=== PATIENT | female | born 1980 | race Caucasian/White ===

== ENCOUNTER 2020-08-09 16:32 | Emergency (ER) | payer OTHER ==
[~2020-08-09] VITALS: Ht 167.6 cm; Wt 62.6 kg
--- OUTSIDE RECORDS SUMMARY | ~2020-08-09 | XMS | Encounter Summary ---
Demographics + + + | Address | [address] | | | [place] [address] | + + + | Home Phone | | + + + | Preferred Language | Unknown | + + + | Marital Status | | + + + | Caodaism Affiliation | 1028 | + + + | Race | White | + + + | Ethnic Group | Not or | + + + Author + + + | Author | [facility] | | | and [place] | + + + | Organization | [facility] | | | and [place] | + + + | Address | Unknown | + + + | Phone | Unavailable | + + + Support + + +---------+ + | Name | Relationship | Address | Phone | + + +---------+ + | Kostas Birch | ECON | Unknown | | + + +---------+ + Care Team Providers + +------+ + | Care Paper Rewinder Operator Name | Role | Phone | + +------+ + | Elif Luong | PCP | | | PA | | | + +------+ + Encounter Details +--------+ + + + + | Date | Type | Department | Care Team | Description | +--------+ + + + + | 01/16/ | Abstract | [facility] | Provider, | | | 2019 | | MD Marvin Wray | | | | | [place] | [address] | | | | | [address] | [place] [address] | | | | | [phone] | | | +--------+ + + + + Social History + +-------+ +--------+------+ | Tobacco Use | Types | Packs/Day | Years | Date | | | | | Used | | + +-------+ +--------+------+ | Never Assessed | | | | | + +-------+ +--------+------+ + + + | Sex Assigned at | Date Recorded | | | | + + + | Not on file | | + + + documented as of this encounter Plan of Treatment Not on filedocumented as of this encounter Visit Diagnoses Not on filedocumented in this encounter"
--- OUTSIDE RECORDS SUMMARY | ~2020-08-09 | XMS | Encounter Summary ---
Demographics + + + | Address | [address] | | | [place] [address] | + + + | Home Phone | | + + + | Preferred Language | Unknown | + + + | Marital Status | | + + + | Yazidi Affiliation | 1028 | + + + | Race | White | + + + | Ethnic Group | Not or | + + + Author + + + | Author | [facility] | | | and [place] | + + + | Organization | [facility] | | | and [...] Team Providers + +------+ + | Care Cop Examiner Name | Role | Phone | + +------+ + PCP | Unavailable | + +------+ + Encounter Details +--------+ + + + + | Date | Type | Department | Care Team | Description | +--------+ + + + + | 02/05/ | Hospital | [facility] | | | | 1992 | Encounter | MED CTR XRAY [address] | | | | | | [address] | | | | | | [place] [address] | | | | | | [phone] | | | +--------+ + + + [...]
--- OUTSIDE RECORDS SUMMARY | ~2020-08-09 | XMS | Encounter Summary ---
Demographics + + + | Address | [address] | | | [place] [address] | + + + | Home Phone | | + + + | Preferred Language | Unknown | + + + | Marital Status | | + + + | Spiritism Affiliation | 1028 | + + + | Race | White | + + + | Ethnic Group | Not or | + + + Author + + + | Author | [facility] | | | and [place] | + + + | Organization | [facility] | | | and [place] | + [...] Team Providers + +------+ + | Care Assistant Account Manager Name | Role | Phone | + +------+ + PCP | Unavailable | + +------+ + Encounter Details +--------+ + + + + | Date | Type | Department | Care Team | Description | +--------+ + + + + | 09/20/ | [facility] | [facility] | Wagner Bridges, | | | 1993 | Encounter | MED CTR MP INTRA OP | MD [address] [facility] | | | | | [address] | [place] | | | | | [place] | [address] | | | | | [address] | | | | | | [phone] | | | +--------+ + + + [...]
--- OUTSIDE RECORDS SUMMARY | ~2020-08-09 | XMS | Encounter Summary ---
Demographics + + + | Address | [address] | | | [place] [address] | + + + | Home Phone | | + + + | Preferred Language | Unknown | + + + | Marital Status | | + + + | Shinto Affiliation | 1028 | + + + | Race | White | + + + | Ethnic Group | Not or | + + + Author + + + | Author | [facility] | | | and [place] | + + + | Organization | [facility] | | | and [place] | + + + | Address | Unknown | + + + | Phone | Unavailable | + + + Support + + +---------+ + | Name | Relationship | Address | Phone | + + +---------+ + | Kostas Gauthier | ECON | Unknown | | + + +---------+ + Care Team Providers + +------+ + | Care Material Movers Name | Role | Phone | + +------+ + | Elif Luong | PCP | | | PA | | | + +------+ + Reason for Visit + + + | Reason | Comments | + + + | New Patient | microscopic hematuria | + + + | Urinary Tract | | | Infection | | + + + Evaluate & Treat (Routine) +--------+--------+ + + + + | Status | Reason | Specialty | Diagnoses / | Referred By | Referred To | | | | | Procedures | Contact | Contact | +--------+--------+ + + + + | Closed | | Urology | Diagnoses | Mica, | Toya | | | | | UTI | Elif | Marlo Quiles, | | | | | (urinary | MARGARITA Jaramillo | [address] | | | | | tract | [address] | [address] | | | | | infection) | [address] | [place], | | | | | NEW/ UTI/ | [place], | [place] [address] | | | | | [place] | [place] | Phone: | | | | | Procedures | [address] | [phone] | | | | | NEW PATIENT | Phone: | Fax: | | | | | | [phone] | [phone] | | | | | | Fax: | | | | | | | [phone] | | +--------+--------+ + + + + Encounter Details +--------+---------+ + + + | Date | Type | Department | Care Team | Description | +--------+---------+ + + + | 01/19/ | Office | [facility] | Marlo Pittman | Hematuria, | | 2019 | Visit | [address] | [address] | unspecified type | | | | [place] | [address] | (Primary Dx); | | | | [address] | [place], [place] | Abnormal urine | | | | [phone] | [address] | finding; History of | | | | | | kidney stones | | | | | (Fax) | | +--------+---------+ + + + Social History + +-------+ +--------+------+ | Tobacco Use | Types | Packs/Day | Years | Date | | | | | Used | | + +-------+ +--------+------+ | Never Smoker | | | | | + +-------+ +--------+------+ + +---+---+---+ | Smokeless Tobacco: | | | | | Never Used | | | | + +---+---+---+ + + + | Sex Assigned at | Date Recorded | | | | + + + | Not on file | | + + + documented as of this encounter Last Filed Vital Signs + + + + + | Vital Sign | Reading | Time Taken | Comments | + + + + + | Blood Pressure | 118/78 | 01/20/2020 1:38 PM | | | | | PDT | | + + + + + | Pulse | 84 | 01/20/2020 1:38 PM | | | | | PDT | | + + + + + | Temperature | - | - | | + + + + + | Respiratory Rate | 18 | 01/20/2020 1:38 PM | | | | | PDT | | + + + + + | Oxygen Saturation | - | - | | + + + + + | Inhaled Oxygen | - | - | | | Concentration | | | | + + + + + | Weight | 63.5 kg (139 lb 15.9 | 01/20/2020 1:38 PM | | | | oz) | PDT | | + + + + + | Height | 167.6 cm (5' 6") | 01/20/2020 1:38 PM | | | | | PDT | | + + + + + | Body Mass Index | 22.6 | 01/20/2020 1:38 PM | | | | | PDT | | + + + + + documented in this encounter Progress Marlo Bravo MD - 01/20/2020 1:30 PM PDTFormatting of this note might be differ ent from the original. Chief Complaint Patient presents with New Patient microscopic hematuria Urinary Tract Infection HPI Katerin Gauthier is a 39 y.o. female patient of MARGARITA Arceo here today for a ev aluation for urinary tract infection and microhematuria. Microscopic hematuria, UTI's Bouts of right upper quadrant pain No dysuria, gross hematuria, no frequency, no urgency, Has had worsening back and flank pain associated with malaise, intermittent, not very bothe rsome Has history of passing stones, Complains of suprapubic tenderness, mild urgency Had ultrasound of the kidney 4 years ago, does not think stones were found Assessment Katerin was seen today for new patient and urinary tract infection. Diagnoses and all orders for this visit: Hematuria, unspecified type - CT Urogram w wo Contrast; Future - Medical Cytology; Future Abnormal urine finding - POCT Urinalysis - Urinalysis, Microscopic Only, with Culture if Indicated History of kidney stones - Parathyroid Hormone, Intact; Future - Uric Acid; Future Plan PVR 123mL-normal PTH, uric acid 24 hour urine Cysto, CT urogram and cytology Past Medical History Past Medical History: Diagnosis Date Allergic rhinitis pollen Arthralgia pelvis/ hip /femur right Kidney stone Lichenoid keratosis benign Pyelonephritis, acute Past Surgical History Past Surgical History: Procedure Laterality Date GALLBLADDER SURGERY TONSILLECTOMY AND ADENOIDECTOMY Family History: History reviewed. No pertinent family history. Social History: Social History Socioeconomic History Marital status: Spouse name: Not on file Number of children: Not on file Years of education: Not on file Highest education level: Not on file Tobacco Use Smoking status: Never Smoker Smokeless tobacco: Never Used Allergies Allergen Reactions Doxycycline Headache Doxycycline llyclate powder Morphine Rash Sulfamethoxazole-Trimethoprim Hives and Rash Medications: Current Outpatient Medications: busPIRone (BUSPAR) 7.5 MG tablet, Take 7.5 mg by mouth 2 times daily., Disp: , Rfl: cetirizine (ZYRTEC) 10 mg tablet, Take 10 mg by mouth Daily., Disp: , Rfl: levonorgestrel-ethinyl estradiol (JOLESSA) 0.15-0.03 MG per tablet, Take 1 tablet by m outh Daily., Disp: , Rfl: pseudoePHEDrine (SUDAFED) 120 mg 12 hr tablet, Take 120 mg by mouth every 12 hours., D isp: , Rfl: ROS Objective BP 118/78 | Pulse 84 | Resp 18 | Ht 1.676 m (5' 6") | Wt 63.5 kg (139 lb 15.9 oz) | BM I 22.60 kg/m General Appearance: Alert, cooperative, no distress, appears stated age Head: Normocephalic, without obvious abnormality, atraumatic Eyes: conjunctiva/corneas clear, EOM's intact Throat: Lips, mucosa, and tongue normal; no gross deformities, mmm Neck: Supple, symmetrical, no adenopathy Lungs: Regular, unlabored breathing MS No CVA tenderness, no spinal tenderness, no scoliosis present Abdomen: Soft, non-tender, no masses Extremities: Extremities normal, atraumatic, no cyanosis, clubbing, or edema Pulses: Radial pulses 2+ and symmetric Skin: Warm and dry Lymph nodes: Cervical and supraclavicular nodes normal Neurologic: Gait normal, CN 2-12 grossly intact; Strength and sensation grossly normal in b ilateral upper and lower extremities Data: REVIEW OF SYSTEMS: [] Marked All Negative Constitutional Symptoms: [] Fever [] Chills [] Headache [] Change in appetite [] Change in weight [x] Change in energy [] Other: Neurological: [] Tremors [] Dizzy Spells [] Numbness/Tingling [] Seizures [] Other: Endocrine: [] Excessive thirst [] Too hot [] Too cold [x] Tired/Sluggish Gastrointestinal: [x] Abdominal pain [x] Nausea/Vomiting [x] Indigestion/heartburn [] Change in s tool size [] Change in stool shape [] Change in stool color [] Pain with swallow ing [] Other: Cardiovascular: [] Chest Pain [] Rapid heart rate [] High blood pressure [] Other: Integumentary: [] Skin rash [] Boils [] Persistent itch [] Other: Musculoskeletal: [] Neck Pain [] Joint swelling/pain [x] Back pain [] Bone pain [] Other: Respiratory: [] Wheezing [] Frequent cough [] Shortness of breath [] Other: Hematologic/Lymphatic: [] Swollen glands [] Blood clotting issues [] Prior blood transfusions []Other: Psychologic: Are you generally satisfied with your life? yes Do you feel severely depressed? no Have you considered suicide? no Habits: Do you smoke? no Results for orders placed or performed in visit on 01/20/20 Urinalysis, Microscopic Only, with Culture if Indicated Result Value Ref Range WBC UA 0-2 0 - 2 /HPF RBC UA 0-2 0 - 2 /HPF SQUAMOUS EPITHELIAL UA 10-15 (A) 0 - 2 /LPF BACTERIA UA Negative Negative /HPF MUCUS UA Present (A) Negative /LPF URINE COMMENT Urine Culture Not Indicated POCT Urinalysis Result Value Ref Range Color, UA, POC Yellow Yellow, Light Yellow Clarity, UA, POC Clear Glucose, UA, POC Negative Negative Bilirubin, UA, POC Negative Negative Ketones, UA, POC Negative Negative, 100 mg/dL Specific [place], UA, POC 1.015 1.001 - 1.030 Blood, UA, POC Trace Lysed (A) Negative pH, UA, POC 6.0 5.0, 6.0, 7.0, 8.0, 5.5, 6.5, 7.5 Protein, UA, POC Negative Negative Urobilinogen, UA, POC 0.2 0.2, Negative, Normal, < 0.2 mg/dL, 1 mg/dL, < 0.2 E.U./dl, 1.0 E.U./dL, 0.2 mg/dL Nitrite, UA, POC Negative Negative Leukocyte Esterase, UA, POC Negative Negative Remark No results found for: MARGARITA Vera's notes were reviewed in clinic today. Return for next available cysto.. This document was generated in part using voice recognition software. Frequent wrong word or sound-alike substitutions may have occurred due to the inherent limitations of the voice recognition software. Although I have attempted to edit the content, I have not thoroughly proofread this note, and cloth picker errors are very likely to occur. CC: MARGARITA Arceo documented in this encounter Plan of Treatment Not on filedocumented as of this encounter Procedures + +--------+ + + + | Procedure Name | Priori | Date/Time | Associated Diagnosis | Comments | | | ty | | | | + +--------+ + + + | MEDICAL CYTOLOGY | Routin | 02/11/2020 | | Results for this | | | e | 12:00 AM | | procedure are in the | | | | PDT | | results section. | + +--------+ + + + | LABS - EXTERNAL SCAN | | 01/30/2020 | | Results for this | | | | 12:00 AM | | procedure are in the | | | | PDT | | results section. | + +--------+ + + + | POCT URINALYSIS, | Routin | 01/20/2020 | Abnormal urine | Results for this | | AUTO WITH CONF | e | 1:36 PM | finding | procedure are in the | | | | PDT | | results section. | + +--------+ + + + | URINALYSIS, | Routin | 01/20/2020 | Abnormal urine | Results for this | | MICROSCOPIC ONLY, | e | 1:35 PM | finding | procedure are in the | | WITH CULTURE IF | | PDT | | results section. | | INDICATED | | | | | + +--------+ + + + | IMAGING REPORT - | | 01/20/2020 | | Results for this | | EXTERNAL SCAN | | 12:00 AM | | procedure are in the | | | | PDT | | results section. | + +--------+ + + + documented in this encounter Results Medical Cytology (02/11/2020 12:00 AM PDT) + + | Specimen | + + | | + + + + + | Narrative | Performed At | + + + | ORDERING PHYSICIAN: Marlo Pittman MD PATIENT NAME: | [facility] | | KATER[place] GAUTHIER GENDER: F : 1980 | [place] | | SPECIMEN(S): A URINE, CLEAN CATCH GROSS DESCRIPTION: 80 ML OF | | | CLEAR, YELLOW FLUID IN CYTOLYT CLINICAL HISTORY: NO CLINICAL | | | DATA PROVIDED LABORATORY PREPARATIONS: 1 [facility] | | | INTERPRETATION: Urine, Voided: Negative for High Grade Urothelial | | | Carcinoma ([facility]). Blood present. DESCRIPTION: The preparation | | | is adequately cellular. Intact red blood cells are present and | | | indicate hematuria. Cytologic features of high grade urothelial | | | carcinoma are absent. SPECIMEN ADEQUACY: Satisfactory for | | | Evaluation PERFORMING LABORATORY: Technical preparation was | | | performed by [facility] [id number] | | | [place] [address] and [facility] [address] | | | [place] [address]. Professional interpretation was performed | | | by [facility] - [facility] - [address] | | | [place] [address] (Blood Donor Unit Assistant: Kang Cornelius, | | | ; IA#:[id number]).8 Diagnostician: Racquel DRISCOLL | | | ([facility]) Kitchen Food Assembler Diagnostician: Anthony Nuñez MD | | | Pathologist Electronically Signed 02/13/2020 | | + + + + +---------+ + + | Performing | Address | City/State/Zipcode | Phone Number | | Organization | | | | + +---------+ + + | [facility] | | | | | [place] | | | | + +---------+ + + LABS - EXTERNAL SCAN (01/30/2020 12:00 AM PDT) + + + | Narrative | Performed At | + + + | Ordered by an | | | unspecified provider. | | + + + Uric Acid (01/20/2020 2:34 PM PDT) + +-------+ + + + | Component | Value | Ref Range | Performed | Pathologist | | | | | At | Signature | + +-------+ + + + | Uric Acid | 4.0 | 3.1 - 7.8 mg/dL | [facility] | | | | | | [facility] | | | | | | MEDICAL | | | | | | CENTER - | | | | | | LABORATORY | | + +-------+ + + + + + | Specimen | + + | Blood | + + + + + + + | Performing | Address | City/State/Zipcode | Phone Number | | Organization | | | | + + + + + | [facility] | [address] | [place] | [phone] | | [facility] | | [address] | | | - LABORATORY | | | | + + + + + Parathyroid Hormone, Intact (01/20/2020 2:34 PM PDT) + +-------+ + + + | Component | Value | Ref Range | Performed | Pathologist | | | | | At | Signature | + +-------+ + + + | PTH Intact | 48 | 19 - 88 pg/mL | [facility] | | | | | | [facility] | | | | | | MEDICAL | | | | | | CENTER - | | | | | | LABORATORY | | + +-------+ + + + + + | Specimen | + + | Blood | + + + + + + + | Performing | Address | City/State/Zipcode | Phone Number | | Organization | | | | + + + + + | [facility] | [address] | [place] | [phone] | | [facility] | | [address] | | | - LABORATORY | | | | + + + + + POCT Urinalysis (01/20/2020 1:36 PM PDT) + + + + + + | Component | Value | Ref Range | Performed | Pathologist | | | | | At | Signature | + + + + + + | Color, UA, | Yellow | Yellow, Light | | | | POC | | Yellow | | | + + + + + + | Clarity, | Clear | | | | | UA, POC | | | | | + + + + + + | Glucose, | Negative | Negative | | | | UA, POC | | | | | + + + + + + | Bilirubin, | Negative | Negative | | | | UA, POC | | | | | + + + + + + | Ketones, | Negative | Negative, 100 | | | | UA, POC | | mg/dL | | | + + + + + + | Specific | 1.015 | 1.001 - 1.030 | | | | [place], | | | | | | UA, POC | | | | | + + + + + + | Blood, UA, | Trace Lysed (A) | Negative | | | | POC | | | | | + + + + + + | pH, UA, POC | 6.0 | 5.0, 6.0, 7.0, | | | | | | 8.0, 5.5, 6.5, | | | | | | 7.5 | | | + + + + + + | Protein, | Negative | Negative | | | | UA, POC | | | | | + + + + + + | Urobilinoge | 0.2 | 0.2, Negative, | | | | n, UA, POC | | Normal, < 0.2 | | | | | | mg/dL, 1 mg/dL, | | | | | | < 0.2 E.U./dl, | | | | | | 1.0 E.U./dL, | | | | | | 0.2 mg/dL | | | + + + + + + | Nitrite, | Negative | Negative | | | | UA, POC | | | | | + + + + + + | Leukocyte | Negative | Negative | | | | Esterase, | | | | | | UA, POC | | | | | + + + + + + | Remark | | | | | + + + + + + + + | Specimen | + + | Urine | + + Urinalysis, Microscopic Only, with Culture if Indicated (01/20/2020 1:35 PM PDT) + + + + + + | Component | Value | Ref Range | Performed | Pathologist | | | | | At | Signature | + + + + + + | White Blood | 0-2 | 0 - 2 /HPF | [facility] | | | Cells, | | | [facility] | | | Urine | | | MEDICAL | | | | | | CENTER - | | | | | | LABORATORY | | + + + + + + | Red Blood | 0-2 | 0 - 2 /HPF | [facility] | | | Cells, | | | [facility] | | | Urine | | | MEDICAL | | | | | | CENTER - | | | | | | LABORATORY | | + + + + + + | Squamous | 10-15 (A) | 0 - 2 /LPF | [facility] | | | Epithelial | | | [facility] | | | Cells, | | | MEDICAL | | | Urine | | | CENTER - | | | | | | LABORATORY | | + + + + + + | Bacteria, | Negative | Negative /HPF | [facility] | | | Urine | | | [facility] | | | | | | MEDICAL | | | | | | CENTER - | | | | | | LABORATORY | | + + + + + + | Mucus, | Present (A) | Negative /LPF | [facility] | | | Urine | | | [facility] | | | | | | MEDICAL | | | | | | CENTER - | | | | | | LABORATORY | | + + + + + + | Urine | Urine Culture Not | | [facility] | | | Comment | Indicated | | [facility] | | | | | | MEDICAL | | | | | | CENTER - | | | | | | LABORATORY | | + + + + + + + + | Specimen | + + | Urine - Urine | | specimen obtained by | | clean catch | | procedure (specimen) | + + + + + + + | Performing | Address | City/State/Zipcode | Phone Number | | Organization | | | | + + + + + | [facility] | [address] | [place], [place] | [phone] | | [facility] | | [address] | | | - LABORATORY | | | | + + + + + IMAGING REPORT - EXTERNAL SCAN (01/20/2020 12:00 AM PDT) + + + | Narrative | Performed At | + + + | Ordered by an | | | unspecified provider. | | + + + documented in this encounter Visit Diagnoses + + | Diagnosis | + + | Hematuria, unspecified type - Primary | + + | Abnormal urine finding Other nonspecific finding on examination of urine | + + | History of kidney stones Personal history of urinary calculi | + + documented in this encounter
--- OUTSIDE RECORDS SUMMARY | ~2020-08-09 | XMS | Encounter Summary ---
Demographics + + + | Address | [address] | | | [place] [address] | + + + | Home Phone | | + + + | Preferred Language | Unknown | + + + | Marital Status | | + + + | Adventist Affiliation | 1028 | + + + | Race | White | + + + | Ethnic Group | Not or | + + + Author + + + | Author | [facility] | | | and [place] | + + + | Organization | [facility] | | | [...] Team Providers + +------+ + | Care Digital Sales Director Name | Role | Phone | + +------+ + PCP | Unavailable | + +------+ + Encounter Details +--------+ + + + + | Date | Type | Department | Care Team | Description | +--------+ + + + + | 10/12/ | Hospital | [facility] | | | | 2000 | Encounter | MED CTR XRAY [address] | | | | | | [place] | | | | | | [place] [address] | | | | | | [phone] | | | +--------+ + + + [...]
--- OUTSIDE RECORDS SUMMARY | ~2020-08-09 | XMS | Clinical Summary ---
Demographics + + + | Address | [address] | | | [place] [address] | + + + | Home Phone | | + + + | Preferred Language | Unknown | + + + | Marital Status | | + + + | Church Affiliation | 1028 | + + + | Race | White | + + + | Ethnic Group | Not or | + + + Author + + + | Author | [facility] | | | and Krisana | + + + | Organization | [facility] | | | [...] Team Providers + +------+ + | Care Pulp Grinder Name | Role | Phone | + +------+ + | Elif Luong | PCP | | | PA | | | + +------+ + Allergies + + + + + + | Active Allergy | Reactions | Severity | Noted | Comments | | | | | Date | | + + + + + + | Doxycycline | Headache | | 01/17/20 | Doxycycline | | | | | 20 | llyclate powder | + + + + + + | Morphine | Rash | Low | 01/20/20 | | | | | | 20 | | + + + + + + | Sulfamethoxazole-Tri | Hives, Rash | Low | 01/17/20 | | | methoprim | | | 20 | | + + + + + + Medications + + + +---------+------+------+-------+ | Medication | Sig | Dispensed | Refills | Star | End | Statu | | | | | | t | Date | s | | | | | | Date | | | + + + +---------+------+------+-------+ | busPIRone (BUSPAR) | Take 7.5 mg by mouth | | 0 | | | Activ | | 7.5 MG tablet | 2 times daily. | | | | | e | + + + +---------+------+------+-------+ | | Take 1 tablet by | | 0 | | | Activ | | levonorgestrel-ethin | mouth Daily. | | | | | e | | yl estradiol | | | | | | | | (JOLESSA) 0.15-0.03 | | | | | | | | MG per tablet | | | | | | | + + + +---------+------+------+-------+ | pseudoePHEDrine | Take 120 mg by mouth | | 0 | | | Activ | | (SUDAFED) 120 mg 12 | every 12 hours. | | | | | e | | hr tablet | | | | | | | + + + +---------+------+------+-------+ | cetirizine | Take 10 mg by mouth | | 0 | | | Activ | | (ZYRTEC) 10 mg | Daily. | | | | | e | | tablet | | | | | | | + + + +---------+------+------+-------+ Active Problems Not on file Social History + +-------+ +--------+------+ | Tobacco [...] on file | | + + + Last Filed Vital Signs + + + + + | Vital Sign | Reading | Time Taken | Comments | + + + + + | Blood Pressure | 116/72 | 02/11/2020 2:49 PM | | | | | PDT | | + + + + + | Pulse | 84 | 02/11/2020 2:49 PM | | | | | PDT | | + + + + + | Temperature | - | - | | + + + + + | Respiratory Rate | 18 | 02/11/2020 2:49 PM | | | | | PDT | | + + + + + | Oxygen Saturation | - | - | | + + + + + | Inhaled Oxygen | - | - | | | Concentration | | | | + + + + + | Weight | 63.7 kg (140 lb 6.9 | 02/11/2020 2:49 PM | | | | oz) | PDT | | + + + + + | Height | 167.6 cm (5' 6") | 02/11/2020 2:49 PM | | | | | PDT | | + + + + + | Body Mass Index | 22.67 | 02/11/2020 2:49 PM | | | | | PDT | | + + + + + Plan of Treatment + + + + + | Health Maintenance | Due Date | Last | Comments | | | | Done | | + + + + + | Hepatitis C | | | | | Screening | 8 | | | + + + + + | Vaccine: | | | | | Dtap/Tdap/Td (1 - | 7 | | | | Tdap) | | | | + + + + + | Cervical Cancer | | | | | Screening (Pap) | 8 | | | + + + + + | Vaccine: Influenza | | 07/17/20 | | | (#1) | 0 | 19, | | | | | 07/17/20 | | | | | 18, | | | | | 08/06/20 | | | | | 17, | | | | | Addition | | | | | al | | | | | history | | | | | exists | | + + + + + Results Not on filefrom Last 3 Months Insurance +-------+--------+ +--------+ +---------+------+ | Payer | Benefi | Subscriber | Effect | Phone | Address | Type | | | t Plan | ID | pooja | | | | | | / | | Dates | | | | | | Group | | | | | | +-------+--------+ +--------+ +---------+------+ | CIGNA | CIGNA | [id number] | 06/30/20 | [phone] | | PPO | | | PPO | | 16-Pre | 1 | | | | | | | sent | | | | +-------+--------+ +--------+ +---------+------+ + +--------+ +--------+ + + | Guarantor Name | Accoun | Relation to | Date | Phone | Billing Address | | | t Type | Patient | of | | | | | | | | | | + +--------+ +--------+ + + | Katerin Birch | Person | Self | [birth year] | [address] | | | al/Fam | | 1980 | [phone] | [place] [address] | | | lisa | | | 9 (Home) | | + +--------+ +--------+ + + Advance Directives + + + + + | Type | Date Recorded | Patient | Explanation | | | | Spanish Teacher | | + + + + + | Power of | | | | | Rn Advanced | | | | + + + + + | Advance | | | | | Directive | | | | + + + + +
--- OUTSIDE RECORDS SUMMARY | ~2020-08-09 | XMS | Encounter Summary ---
Demographics + + + | Address | [address] | | | [place] [address] | + + + | Home Phone | | + + + | Preferred Language | Unknown | + + + | Marital Status | | + + + | Mosque Affiliation | 1028 | + + + | Race | White | + + + | Ethnic Group | Not or | + + + Author + + + | Author | [facility] | | | and [place] | + + + | Organization | [facility] | | | [...] Team Providers + +------+ + | Care Software Tools Developer Name | Role | Phone | + +------+ + | Elif Luong | PCP | | | PA | | | + +------+ + Reason for Visit + + + | Reason | Comments | + + + | Follow-up | Cystoscopy for UTI and hematuria | + + + Encounter Details +--------+---------+ + + + | Date | Type | Department | Care Team | Description | +--------+---------+ + + + | 02/10/ | Office | [facility] | Marlo Pittman | Abnormal urinalysis | | 2020 | Visit | [address] | [address] | (Primary Dx); | | | | [place] | [address] | Hematuria, | | | | [address] | [place] | unspecified type; | | | | [phone] | [address] | History of kidney | | | | | [phone] | stones; Flank pain | | | | | | | +--------+---------+ + + + Social [...] + + documented in this encounter Progress Notes Yarely Wood, Bone Process Operator - 02/11/2020 3:00 PM PDTSent urine to [facility] for cytology via assembler knife with reflex for UroVysion (FISH) if cytology is atypical or suspicious . ..........................................Yarely Wood CMA on 02/11/20 at 2:59 PM arlo Pittman MD - 02/11/2020 3:00 PM PDTFormatting of this note might be different from t he original. Chief Complaint Patient presents with Follow-up Cystoscopy for UTI and hematuria HPI Katerin Birch is a 39 y.o. female patient of MARGARITA Arceo here today for a Cy stoscopy for urinary tract infection and hematuria. Consent form signed & time out form completed Microscopic hematuria, UTI's Bouts of right upper quadrant pain No dysuria, gross hematuria, no frequency, no urgency, Has had worsening back and flank pain associated with malaise, intermittent, not very bothe rsome Has history of passing stones, Complains of suprapubic tenderness, mild urgency Had ultrasound of the kidney 4 years ago, does not think stones were found Cystoscopy Preprocedure timeout was performed. The patient's genitals were then prepped and draped us ual fashion. 10 mL's of viscous lidocaine was instilled per urethra. The scope was then in troduced into the urethra. The anterior urethra was grossly normal. Upon entering the blad wilfred hyatt cystoscopy was performed. Bilateral UOs were identified in the normal anatomic posi tion effluxing clear urine.No trabeculations were noted. There are no mucosal abnormalitie s seen. The scope was then removed and the patient tolerated the procedure well. Assessment Katerin was seen today for follow-up. Diagnoses and all orders for this visit: Abnormal urinalysis - POCT Urinalysis - Urinalysis, Microscopic Only, with Culture if Indicated Hematuria, unspecified type History of kidney stones Flank pain Plan PVR 123mL-normal Patient was noted to have a normal parathyroid hormone as well as uric acid levels. An ext ensive conversation was had regarding the patient's 24-hour urine results. We discussed vickie t the biggest risk factor for recurrent stones in her would be her low urine volume. We dis cussed the importance of maintaining adequate oral intake so that she voids greater than 2.5 L of urine per day. Patient was also noted to have low normal levels of citrate as well as magnesium. The importance of magnesium and citrate and stone prevention were discussed in detail with the patient. We discussed that she can increase urinary citrate levels with pre scription supplementation such as potassium citrate. Given that her levels were normal I re commend the patient supplement her oral intake with lemon juice. This can be added to her w ater. We then discussed starting a magnesium supplement. We again discussed the patient's chronic right low back and flank pain. At this time there is no clear etiology for her symptoms. The kidneys appear to be draining functioning well. There is no evidence of stones and no significant lesions found in her bladder. Recommend patient follow-up as needed Greater than 15 minutes was spent face with the patient and greater than 50% of the time wa s spent counseling the patient. Past Medical History Past Medical History: Diagnosis [...] D isp: , Rfl: ROS Objective BP 116/72 | Pulse 84 | Resp 18 | Ht 1.676 m (5' 6") | Wt 63.7 kg (140 lb 6.9 oz) | BMI 22.67 kg/m General Appearance: Alert, cooperative, no distress, [...] b ilateral upper and lower extremities Data: Results for orders placed or performed in visit on 02/11/20 Urinalysis, Microscopic Only, with Culture if Indicated Result Value Ref Range White Blood Cells, Urine 0-2 0 - 2 /HPF RBC UA 2-5 (A) 0 - 2 /HPF Squamous Epithelial Cells, Urine 50-100 (A) 0 - 2 /LPF BACTERIA UA Negative Negative /HPF MUCUS UA Present (A) Negative /LPF URINE COMMENT Urine Culture Not Indicated No results found for: MARGARITA Vera's notes were reviewed in clinic today. No follow-ups on file.. This document was generated in part using voice recognition software. Frequent wrong word or sound-alike substitutions may have occurred due to the inherent limitations of the voice recognition software. Although I have attempted to edit the content, I have not thoroughly proofread this note, and manager of pmo errors are very likely to occur. CC: MARGARITA Arceo documented in this encounter Plan of Treatment Not on filedocumented as of this encounter Procedures + +--------+ + + + | Procedure Name | Priori | Date/Time | Associated Diagnosis | Comments | | | ty | | | | + +--------+ + + + | URINALYSIS, | Routin | 02/11/2020 | Abnormal | Results for this | | MICROSCOPIC ONLY, | e | 2:53 PM | urinalysis | procedure are in the | | WITH CULTURE IF | | PDT | | results section. | | INDICATED | | | | | + +--------+ + + + | POCT URINALYSIS, | Routin | 02/11/2020 | Abnormal | Results for this | | AUTO WITH CONF | e | 2:45 PM | urinalysis | procedure are in the | | [...] + | IMAGING REPORT - | | 01/23/2020 | | Results for this | | EXTERNAL SCAN | | 12:00 AM | | procedure are in the | | | | PDT | | results section. | + +--------+ + + + documented in this encounter Results Urinalysis, Microscopic Only, with Culture if Indicated (02/11/2020 2:53 PM PDT) + + + + + [...] + + + | Red Blood | 2-5 (A) | 0 - 2 /HPF | [facility] | | | Cells, | | | [facility] | | | Urine | | | [facility]ICAL | | | | | | [facility] - | | | | | | LABORATORY | | + + + + + + | Squamous | 50-100 (A) | 0 - 2 /LPF | [...] | | Comment | Indicated | | [facility] | | | [...] + + | [facility] | [address] | [place] | [phone] | | [facility] | | [address] | | | - LABORATORY | | | | + + + + + POCT Urinalysis (02/11/2020 2:45 PM PDT) + + + + + + | Component | Value | Ref Range | Performed | Pathologist | | | | | At | Signature | + + + + + + | Color, UA, | Demetrice (A) | Yellow, Light | | | | [...] + + + + | Ketones, | Trace (A) | Negative, 100 | | | | UA, POC | | mg/dL | | | + + + + + + | Specific | 1.025 | 1.001 - 1.030 | | | | Bailey, | | | | | | UA, POC | | | | | + + + + + + | Blood, UA, | Trace Intact (A) | Negative | | | | POC | | | | | + + + + + + | pH, UA, POC | 6.5 | 5.0, 6.0, 7.0, | | | [...] + + | Urine | + + LABS - EXTERNAL SCAN (01/30/2020 12:00 AM PDT) + + + | Narrative | Performed At | + + + | Ordered by an | | | unspecified provider. | | + + + IMAGING REPORT - EXTERNAL SCAN (01/23/2020 12:00 AM PDT) + + + | Narrative | Performed At | + + + | Ordered by an | | | unspecified provider. | | + + + documented in this encounter Visit Diagnoses + + | Diagnosis | + + | Abnormal urinalysis - Primary Other nonspecific finding on examination of urine | + + | Hematuria, unspecified type | + + | History of kidney stones Personal history of urinary calculi | + + | Flank pain Abdominal pain, unspecified site | + + documented in this encounter
--- OUTSIDE RECORDS SUMMARY | ~2020-08-09 | XMS | Encounter Summary ---
Demographics + + + | Address | [address] | | | [place] [address] | + + + | Home Phone | | + + + | Preferred Language | Unknown | + + + | Marital Status | | + + + | Sikh Affiliation | 1028 | + + + | Race | White | + + + | Ethnic Group | Not or | + + + Author + + + | Author | [facility] | | | and [place] | + + + | Organization | [facility] | | [...] Team Providers + +------+ + | Care Supervisor Concrete Pipe Plant Name | Role | Phone | + +------+ + PCP | Unavailable | + +------+ + Encounter Details +--------+ + + + + | Date | Type | Department | Care Team | Description | +--------+ + + + + | 11/12/ | Hospital | [facility] | | | | 1998 | Encounter | MED CTR GENERIC OP | | | | | | CONV DEPT [address] | | | | | | [place], | | | | | | [place] [address] | | | | | | [phone] | | | +--------+ + + + [...]
--- OUTSIDE RECORDS SUMMARY | ~2020-08-09 | XMS | Encounter Summary ---
Demographics + + + | Address | [address] | | | [place] [address] | + + + | Home Phone | | + + + | Preferred Language | Unknown | + + + | Marital Status | | + + + | Buddhism Affiliation | 1028 | + + + | Race | White | + + + | Ethnic Group | Not or | + + + Author + + + | Author | [facility] | | | and [place] | + + + | Organization | [facility] | | | and [...] Team Providers + +------+ + | Care Auto Specialty Services Manager Name | Role | Phone | + +------+ + PCP | Unavailable | + +------+ + Encounter Details +--------+ + + + + | Date | Type | Department | Care Team | Description | +--------+ + + + + | 11/27/ | Hospital | [facility] | | | | 1996 | Encounter | MED CTR EMERGENCY | | | | | | [address] | | | | | | [place] | | | | | | [address] | | | | | | [phone] | | | +--------+ + + + [...]
--- OUTSIDE RECORDS SUMMARY | ~2020-08-09 | XMS | Encounter Summary ---
Demographics + + + | Address | [address] | | | [place] [address] | + + + | Home Phone | | + + + | Preferred Language | Unknown | + + + | Marital Status | | + + + | Mandaeism Affiliation | 1028 | + + + | Race | White | + + + | Ethnic Group | Not or | + + + Author + + + | Author | [facility] | | | and [place] | + + + | Organization | [facility] | | | [...] Team Providers + +------+ + | Care Boilermaker Pipe Fitter Name | Role | Phone | + +------+ + | Elif Luong | PCP | | | PA | | | + +------+ + Reason for Visit + +--------+ + | Reason | Onset | Comments | | | Date | | + +--------+ + | Radiology | 01/20/ | | | Appointment | 2020 | | + +--------+ + | Results | 01/20/ | | | | 2020 | | + +--------+ + Encounter Details +--------+ + + + + | Date | Type | Department | Care Team | Description | +--------+ + + + + | 01/20/ | Telephone | [facility] | Marlo Pittman | Radiology | | 2020 | | [address] | [address] | Appointment; Results | | | | [place] | [facility] | | | | | [address] | [place], [place] | | | | | [phone] | [address] | | | | | | [phone] | | | | | | | | +--------+ + + + [...] + + documented as of this encounter Miscellaneous Notes Telephone Encounter - Artemio Munson RN - 02/04/2020 10:41 AM PDTPatient notified and stated her understanding. 10: 41 AM PDTTelephone Encounter - Aditi Martin - 02/04/2020 10:30 AM PDTPATIENT RETURN ED CALL AND WOULD LIKE A CALLBACK FROM NURSE WHEN POSSIBLE AT [phone]. Electronically s igned by Aditi Martin at 02/04/2020 10:32 AM PDTTelephone Encounter - Herb Munson RN - 02/04/2020 10:23 AM PDTMessage left for patient to call back. Electronically sig korin by Artemio Munson RN at 02/04/2020 10:23 AM PDTTelephone Encounter - Dave Pittman MD - 02/04/2020 8:18 AM PDTCT scan revealed no significant abnormalities. We can continue to discuss during the patient's follow-up cystoscopy. elephone Encounter - Magali Mcdonnell - 02/03/2020 8:21 AM PDTPatient called back today at 8:20am wanting to know if the provider has reviewed the CT and if she could get results. Please call patient at [phone].Electr onically signed by Magali Mcdonnell at 02/03/2020 8:21 AM PDTTelephone Encounter - Shereen Delgado RN - 01/27/2020 3:53 PM PDTNotified Harriett that we received the CT report fro [facility] and images are in our system ([employer]). I faxed report to our Image [facility]ibr shaq so they can load images into [facility]. She has not received the 24 hour urine collection kit from [facility] yet. elephone Encounter - Shereen Simmons RN - 01/27/2020 2:25 PM PDTPatient called to ask i f we'd received results of CT done at [facility]. Informed her we have not. She katlyn l contact them and ask them to send them (results: images and report) to us.Electronically s igned by Shereen Simmons RN at 01/27/2020 2:26 PM PDTTelephone Encounter - Nesha Simmons RN - 01/21/2020 5:24 PM PDTCindy is notified of lab results. She also notified that CT orders were faxed to [facility] as requested by her insurance. She may call and scheduled CT anytime well before her visit here 02/11/20 to allow us time to obtain images. S he will call them and schedule. elephone Encounter - Marlo Pittman MD - 01/21/2020 3:42 PM PDTParath yroid hormone and uric acid levels were normal. These are not contributing to stone disease . elephone Enco Aditi Schwarz - 01/21/2020 2:39 PM PDTCigna insurance [employer] called in and would like for CT scan orders that is ordered by faxed [facility] to [facility], . Please advise. Electronically signed by Aditi Martin at 12/29 2:41 PM PDTdocumented in this encounter Plan of Treatment Not on filedocumented as of this encounter Visit Diagnoses Not on filedocumented in this encounter"
--- OUTSIDE RECORDS SUMMARY | ~2020-08-09 | XMS | Encounter Summary ---
Demographics + + + | Address | [address] | | | [place] [address] | + + + | Home Phone | | + + + | Preferred Language | Unknown | + + + | Marital Status | | + + + | Jainism Affiliation | 1028 | + + + | Race | White | + + + | Ethnic Group | Not or | + + + Author + + + | Author | [facility] | | | and [place] | + + + | Organization | [facility] | | | [...] Providers + +------+ + | Care Pulp Maker Name | Role | Phone | + +------+ + | Elif Luong | PCP | | | PA | | | + +------+ + Encounter Details +--------+ + + + + | Date | Type | Department | Care Team | Description | +--------+ + + + + | 01/26/ | Imaging | [facility] | Provider, | | | 2020 | Exam | MED CTR EXTERNAL | MD Marvin Cespedes | | | | | IMAGING [address] | | | | | [address] | [place] [address] | | | | | [place] [address] | | | | | | [phone] | | | +--------+ + + + [...] | + +--------+ + + + | CT ABDOMEN PELVIS W | Routin | 01/23/2020 | | Results for this | | WO CONTRAST | e | 12:00 AM | | procedure are in the | | | | PDT | | results section. | + +--------+ + + + documented in this encounter Results CT Abdomen Pelvis w wo Contrast (01/23/2020 12:00 AM PDT) + + | Specimen | + + | | + + + + + | Narrative | Performed At | + + + | External films for comparison only | [facility] | | | | | No results will be in the chart. | | + + + + +---------+ + + | Performing | Address | City/State/Zipcode | Phone Number | | Organization | | | | + +---------+ + + | [facility] | | | | + +---------+ + + documented in this encounter Visit Diagnoses Not on filedocumented in this encounter"
--- OUTSIDE RECORDS SUMMARY | ~2020-08-09 | XMS | Encounter Summary ---
Demographics + + + | Address | [address] | | | [place] [address] | + + + | Home Phone | | + + + | Preferred Language | Unknown | + + + | Marital Status | | + + + | Hoahaoism Affiliation | 1028 | + + + | Race | White | + + + | Ethnic Group | Not or | + + + Author + + + | Author | [facility] | | | and [place] | + + + | Organization | [facility] | | | [...] Team Providers + +------+ + | Care Necktie Turner Name | Role | Phone | + +------+ + PCP | Unavailable | + +------+ + Encounter Details +--------+ + + + + | Date | Type | Department | Care Team | Description | +--------+ + + + + | 08/19/ | Hospital | [facility] | | | | 1997 | Encounter | MED CTR GENERIC OP | | | | | | CONV DEPT [address] | | | | | | [place], | | | | | | [place] [address] | | | | | | [phone] | | | +--------+ + + + [...]
[~2020-08-09 16:32] MED LIST: AVELOX400 MG PO; AVIANE1 EACH PO; HYDROCODON-ACE1 EA10 PO; IBUPROFEN800 MG PO; NORCO 5-325 TA1 EACH PO; VITAMIN D250000 UNIT PO
[2020-08-09] MEDS ORDERED: JOLESSA1 EACH PO (16:59)
[2020-08-09] MEDS ORDERED: BUSPIRONE HCL7.5 MG PO (17:00)
[2020-08-09] MEDS ORDERED: ZYRTEC10 M3 PO (17:00)
[2020-08-09] MEDS ORDERED: ONDANSETRON ODT8 MG PO (18:41)
[2020-08-09] MEDS ORDERED: OMEPRAZOLE20 MG PO (18:41)
== END 2020-08-09 18:51 | disposition home or self-care (01) ==
LOC: ED 16:32
DX: K29.00 Acute gastritis without bleeding (principal); K22.6 Gastro-esophageal laceration-hemorrhage syndrome; Z87.442 Personal history of urinary calculi; Z88.2 Allergy status to sulfonamides; Z88.1 Allergy status to other antibiotic agents; Z88.5 Allergy status to narcotic agent; Z79.899 Other long term (current) drug therapy
CPT/HCPCS: 80053; 83690; 85025; 96361; 96374; 96375; 99284-25; C9113; J2405; J7030

== ENCOUNTER 2024-12-16 07:21 | Day surgery (SDC) | payer OTHER ==
[~2024-12-16] VITALS: Ht 167.6 cm; Wt 61.4 kg
[~2024-12-16 07:21] MED LIST changes: +BUSPIRONE HCL7.5 MG PO; +IBLOOD GLUCOSE TEST STRIP 1 EA TEST VI PRN; +JOLESSA1 EACH PO; +LACTATED RINGER'S 1,000 ML IV SCH; +LIDOCAINE HCL 1% 5 ML SDV INJ ONE; +MIDAZOLAM HCL 5 MG/5 ML VIAL IV PRN; +OMEPRAZOLE20 MG PO; +ONDANSETRON ODT8 MG PO; +ZYRTEC10 M3 PO; +fentaNYL citrate 100 MCG/2 ML VIAL IV PRN
[2024-12-16 07:36] VITALS: BP 125/70
[2024-12-16] MEDS ORDERED: METOPROLOL SUCC25 MG PO (07:39)
[2024-12-16] MEDS ORDERED: ESCITALOPRAM OX10 MG PO (07:40)
[2024-12-16] MEDS ORDERED: fentaNYL citrate 100 MCG/2 ML VIAL ONE (07:59)
[2024-12-16] MEDS ORDERED: MIDAZOLAM HCL 5 MG/5 ML VIAL ONE (07:59)
--- NOTE | 2024-12-16 08:53 | NUR ---
12/16/24 0853 Mary Garza OXYGEN SATURATION REMAINS 98% ON 3L VIA NC. OXYGEN IS DISCONTINUED AT THIS TIME.
[2024-12-16 09:16] VITALS: BP 126/88
--- NOTE | 2024-12-16 13:56 | OR ---
[facility] [address] [place], [place] [address] Signed DATE OF OPERATION: 12/16/2024 SURGEON: Christine Perez MD PREOPERATIVE DIAGNOSIS: Colon screening. POSTOPERATIVE DIAGNOSIS: Normal colon to cecum. PROCEDURE: Total colonoscopy to cecum. ANESTHESIA: Intravenous sedation fentanyl 150 mcg and Versed 7 mg. INDICATION: This 44-year-old white woman is a patient of AGAPITO Snowden. She is referred for screening colonoscopy. She has never had colonoscopy in the past. She has no current symptoms of bleeding, diarrhea or constipation and no family history of colon cancer that she is aware of. She understands the risk of colonoscopy including but not limited to bleeding, infection, and perforation and wished to proceed. FINDINGS: The prep was good. Complete colonoscopy was undertaken. Cecum had full intubation of the cecum. There was no evidence of polyps, diverticular formation, colitis, or cancer. DESCRIPTION OF PROCEDURE: The patient was brought to the endoscopy suite and placed in lateral decubitus position, given intravenous sedation to the point of slurred speech and nystagmus. Digital rectal examination was normal. An Olympus video colonoscope was passed in the rectum and manipulated throughout the colon ultimately intubating the cecum itself. The ileocecal valve and appendiceal orifice were normal. Scope was withdrawn from that point. Examination throughout showed no sign of abnormality specifically no polyps, diverticular formation, colitis, or cancer. Retroflexed view of the rectum was normal. Scope was removed. The patient was taken to the recovery room in good condition. CONCLUDING DIAGNOSIS: Electronically Signed By: CHRISTINE PEREZ MD 12/16/24 1356 PATIENT NAME: ANNA GAUTHIER OPERATIVE REPORT DATE OF : 76 REPORT #: [id number] PHYSICIAN: CHRISTINE PEREZ MD PCP: NO PRIMARY CARE PHYSICIAN REPORT IS CONFIDENTIAL AND NOT TO BE RELEASED WITHOUT AUTHORIZATION [facility] [address] [place], [place] [address] Signed Normal colon to cecum. PLAN: Recommend repeat colonoscopy in 10 years, sooner if symptoms should develop. It is noted that she is uncertain if a grandfather may have had colon cancer. Recommendation for colonoscopy repeat remains at 10 years based on current guidelines. MD BRENDA Rodriguez/SUNIL /[id number] cc: AGAPITO Snowden Copies: ~ Electronically Signed By: CHRISTINE PEREZ MD 12/16/24 1356 PATIENT NAME: ANNA GAUTHIER OPERATIVE REPORT DATE OF : 76 REPORT #: [id number] PHYSICIAN: CHRISTINE PEREZ MD PCP: NO PRIMARY CARE PHYSICIAN REPORT IS CONFIDENTIAL AND NOT TO BE RELEASED WITHOUT AUTHORIZATION
== END 2024-12-16 09:24 | disposition home or self-care (01) ==
LOC: DS 07:21
PROVIDERS: ATTEND Surgery
PROC: 0DJD8ZZ Inspection of Lower Intestinal Tract, Via Natural or Artificial Opening Endoscopic (ICD-10-PCS; principal; 2024-12-16 08:15)
DX: Z12.11 Encounter for screening for malignant neoplasm of colon (principal); I49.9 Cardiac arrhythmia, unspecified; Z80.0 Family history of malignant neoplasm of digestive organs; Z90.49 Acquired absence of other specified parts of digestive tract; Z98.890 Other specified postprocedural states; Z88.2 Allergy status to sulfonamides; Z88.5 Allergy status to narcotic agent; Z88.8 Allergy status to other drugs, medicaments and biological substances; Z79.899 Other long term (current) drug therapy
CPT/HCPCS: 36415; 84703; 99153; G0500; J2250; J3010

== ENCOUNTER 2025-02-06 13:07 | Emergency (ER) | payer OTHER ==
[~2025-02-06] VITALS: Ht 167.6 cm; Wt 71.5 kg
[~2025-02-06 13:07] MED LIST changes: +ESCITALOPRAM OX10 MG PO; -IBLOOD GLUCOSE TEST STRIP 1 EA TEST VI PRN; -LACTATED RINGER'S 1,000 ML IV SCH; -LIDOCAINE HCL 1% 5 ML SDV INJ ONE; +METOPROLOL SUCC25 MG PO; -MIDAZOLAM HCL 5 MG/5 ML VIAL IV PRN; -fentaNYL citrate 100 MCG/2 ML VIAL IV PRN
[2025-02-06 13:27] LABS: BASOPHILS 0.6 % (0-2); EOSINOPHILS 1.2 % (0-6); HEMATOCRIT 40.3 % (35.0-50.0); HEMOGLOBIN 13.5 g/dL (12.0-18.0); LYMPHOCYTES 30.5 % (24-44); MCH 31.6 (27-36); MCHC 33.6 g/dl (30-36); MCV 93.9 fl (81-99); MONOCYTES 3.4 % (0-12); NEUTROPHILS 64.3 % (39-80); PLATELET COUNT 330 K/uL (140-440); RBC 4.29 M/ul (4.3-5.7); RDW 13.6 (10.5-15.0)
[2025-02-06 13:45] LABS: ALBUMIN 3.6 g/dL (3.4-5.0); ALKALINE PHOSPHATASE 56 U/L (46-116); ALT (SGPT) 26 U/L (14-59); AST (SGOT) 31 U/L (15-37); BILIRUBIN, TOTAL 0.7 mg/dL (0.2-1.0); BUN/CREATININE RATIO 18.47 (6.0-28.6); CALCIUM 8.8 mg/dL (8.5-10.1); CARBON DIOXIDE 24 mmol/L (21-32); CHLORIDE 106 mmol/L (98-107); CREATININE, SERUM 0.92 mg/dL (0.55-1.02); GLOMERULAR FILTRATION RATE,EST 78 mL/min (>60); PROTEIN, TOTAL 7.2 g/dL (6.4-8.2); UREA NITROGEN 17 mg/dL (7-18)
[2025-02-06 14:09] VITALS: BP 138/86
--- NOTE | 2025-02-06 21:31 | EKG ---
[facility] [address] [facility] [place], [place] [address] Signed Normal sinus rhythm Nonspecific ST and T wave abnormality Abnormal ECG No previous ECGs available Confirmed by Alexandra Corado MD () on 02/06/2025 9:31:26 PM Electronically Signed By: ALEXANDRA CORADO MD [id number]/06/[id number] PATIENT NAME: ANNA GAUTHIER Electrocardiogram DATE OF : 76 PHYSICIAN: ALEXANDRA CORADO MD REPORT #: [id number] REPORT IS CONFIDENTIAL AND NOT TO BE RELEASED WITHOUT AUTHORIZATION
== END 2025-02-06 14:08 | disposition home or self-care (01) ==
LOC: ED 13:07
PROVIDERS: Emergency Medicine
DX: R06.09 Other forms of dyspnea (principal); Z88.2 Allergy status to sulfonamides; Z88.5 Allergy status to narcotic agent; Z88.1 Allergy status to other antibiotic agents; Z79.899 Other long term (current) drug therapy
CPT/HCPCS: 36415; 71045; 80053; 83735; 84484; 85025; 85379; 93005; 93010; 99285-25